=== PATIENT | female | born 1955 | race Caucasian/White ===

== ENCOUNTER 2018-11-06 19:07 | Emergency (ER) | payer BC ==
[~2018-11-06] VITALS: Ht 160 cm; Wt 57.6 kg
[2018-11-06 19:44] VITALS: Ht 160 cm; Wt 57.6 kg
[2018-11-06 21:58] VITALS: BP 118/82
== END 2018-11-06 21:58 | disposition home or self-care (01) ==
LOC: ED 19:07
DX: R04.0 Epistaxis (principal); E78.00 Pure hypercholesterolemia, unspecified